=== PATIENT | female | born 1995 | race Caucasian/White ===

== ENCOUNTER 2018-01-13 14:36 | Inpatient (IN) | payer OTHER ==
[2018-01-13 16:33] VITALS: BMI 49.4
[2018-01-13 16:38] LABS: Absolute Monocytes 0.9 K/uL (0.1-1.3); Absolute Neutrophil 6.8 K/uL (1.8-8.0); Basophils % 0.7 % (0-1.3); Eosinophils % 5.6 % (0-4.4); Hematocrit 37.2 % (36.0-45.0); Lymphocytes % 19.3 % (15.3-44.8); MCH 27.3 pg (27.0-35.0); MCV 83.8 fL (80-100); MPV 10.4 fL (7.6-11.3); RBC Red Blood Cell Count 4.44 M/uL (3.86-4.86)
[2018-01-13] MEDS: AMPICILLIN/SULBACT 3 GM in NA CHLORIDE 0.9% 100 ML IVPB SCH (17:24)
[2018-01-13] MEDS: METRONIDAZOLE 500mg IVPB 500 MG/100 ML BAG IV SCH (17:24)
[2018-01-13] MEDS ORDERED: Morphine 2 MG/2 ML SYR IV PRN (22:52)
[2018-01-13] MEDS ORDERED: ACETAMINOPHEN 325 MG TABLET PO PRN (22:53)
[2018-01-13 23:05] LABS: Urine Appearance CLEAR; Urine Bilirubin NEGATIVE (NEG); Urine Blood NEGATIVE (NEG); Urine Color YELLOW; Urine Glucose NEGATIVE (NEG); Urine Protein 1+ (NEG); Urine Specific Gravity >=1.030 (1.005-1.030)
[2018-01-13 23:15] LABS: Urine Microscopic Reflex ORDER UMIC
[2018-01-13 23:37] LABS: Urine Bacteria <20 /HPF (<20); Urine Culture Reflex Order NOT NEEDED; Urine RBC NONE SEEN /HPF (NONE SEEN)
[2018-01-14] MEDS: AMPICILLIN/SULBACT 3 GM in NA CHLORIDE 0.9% 100 ML IVPB SCH ×4 (01:14→19:39)
[2018-01-14] MEDS: METRONIDAZOLE 500mg IVPB 500 MG/100 ML BAG IV SCH ×3 (01:50→17:35)
[2018-01-14] MEDS ORDERED: LIDOCAINE 1% W/EPI 1:100,000 MDV 50 ML VIAL ONE (07:35)
[2018-01-14] MEDS ORDERED: MIDAZOLAM HCL 2 MG/2 ML INJ ONE ×2 (07:44→07:59)
[2018-01-14] MEDS ORDERED: Ringers Lactate 1,000 ML IV ONE (07:52)
[2018-01-14] MEDS ORDERED: PROPOFOL 200 MG/20 ML VIAL IV ONE (07:59)
[2018-01-14] MEDS ORDERED: LIDOCAINE 1% MPF 5 ML VIAL ONE (08:00)
[2018-01-14] MEDS ORDERED: FENTANYL CITR 100 MCG/2 ML ONE (08:00)
[2018-01-14 08:04] LABS: Specific Gravity 1.015 (1.005-1.030)
[2018-01-14] MEDS ORDERED: KETOROLAC 30 MG/ML INJ ONE (08:30)
[2018-01-14] MEDS ORDERED: ONDANSETRON 4 MG/2 ML VIAL ONE (08:30)
[2018-01-14] MEDS ORDERED: HYDROCODONE/APAP 5/325 MG TAB PO PRN (09:31)
[2018-01-14 09:39] VITALS: O2SAT 99
[2018-01-14] MEDS: HYDROCODONE/APAP 5/325 MG TAB PO PRN ×2 (12:51→17:35)
[2018-01-14] MEDS: IBUPROFEN 200 MG TAB PO PRN (16:20)
--- NOTE | 2018-01-14 20:12 | OP ---
Date of Procedure: 01/14/2018 Surgeon: Cecily Ambriz MD Preoperative Diagnosis: Left mons or vulvar abscess with cellulitis. Postoperative Diagnosis: Left mons or vulvar abscess with cellulitis, probably necrotic sebaceous cy st. Anesthesia: General with LMA. Procedure Performed: Wound debridement, excision of the cyst wall. Estimated Blood Loss: Minimal. Specimens: Debrided cyst wall and necrotic tissue, aerobic and anaerobic cultures taken. Complications: None. Drains/packing: Left wet to dry. Indications: The patient is a 22-year-old with complaints of left vulvar/mons abscess that drained a nd is nonhealing. So, she was examined, admitted to the hospital for IV antibiotics, then brought in to the OR for excision and wound debridement. Description Of Procedure: After informed consent was verified, she was taken back to the OR, placed in a supine fashion on the operating table general anesthesia was given, she was placed in a dorsal l ithotomy position using Elan stirrups. Vaginal, vulvar and lower abdominal prep was done in the usu al fashion. Urethra was prepped as well. A red rubber catheter was used to catheterize her. Then, the case was started. An elliptical incision was made all around the wound with a 15-blade after inj ecting 1% lidocaine with 1:100,000 epinephrine 10 cc all around. The cyst wall was completely excise d all the way to the point that good normal fatty tissue was seen and all this was done all around. All this was excised in a systematic fashion, debriding the wound edges using pickups and Allis clamp s. Once the wound edges were completely cleared up, after the cyst wall was excised, and on the late ral margins and the deep margin, there was about a 4 cm depth wound that was about 4 cm around. Thor ough irrigation was suctioned with normal saline. Then, Kerlix sponge was packed in there in a wet-t o-dry fashion. A bandage was placed. The patient was recovered from anesthesia and taken to PACU in stable condition. Estimated Blood Loss: Minimal. Plan: She will be kept in the hospital for 24 hours, change house attendant to p.o. antibiotics, Augmentin and packing and wound care to be taught. To follow up with me in 1 week. ELLA/SHEKHAR Voice ID: [id number] Report ID: [id number]
[2018-01-15] MEDS: AMPICILLIN/SULBACT 3 GM in NA CHLORIDE 0.9% 100 ML IVPB SCH ×2 (00:04→06:21)
[2018-01-15] MEDS: METRONIDAZOLE 500mg IVPB 500 MG/100 ML BAG IV SCH (00:04)
[2018-01-15] MEDS: HYDROCODONE/APAP 5/325 MG TAB PO PRN (08:13)
[2018-01-15] MEDS ORDERED: AMOX/K CLAV 875 MG TAB PO SCH (09:00)
[2018-01-15] MEDS: IBUPROFEN 200 MG TAB PO PRN (09:53)
[2018-01-15 16:52] VITALS: BP 154/92; TEMP 96.8
--- NOTE | 2018-01-16 16:55 | DS ---
Date of Discharge: 01/15/2018 Admitting Diagnoses: Vulvar wound, nonhealing cellulitis, morbid obesity, hidradenitis. Discharge Diagnoses: Vulvar wound, nonhealing cellulitis, morbid obesity, hidradenitis. Hospital Course: Patient was admitted. Please see the H and P for a wound that had cellulitis. Juan pite spontaneous drainage, was not healing, so she was given IV antibiotics, Unasyn and Flagyl. Then , she was taken to the OR the next morning and wound debridement and excision of the sebaceous cyst a nd its entire wall was done and wound was packed wet-to-dry and she was sent to the floor for pain ma nagement and dressing changes. Next morning, which is today, dressing was changed wet-to-dry. Carlobasim haile was coached; however, patient was in a lot of pain, so kept her until the evening and premedicated her with Ottosen 2 tablets and then dressing change done. Partner present now and he was coached, brandie ared to be very nervous, however willing to do the dressing changes. So wet-to-dry dressing changes were clearly discussed with the patient and I did that with the patient and the partner as well as lauren stallworth nurse did it with her mom and the above 2 as well. So, since she tolerated the dressing change halina y well and the dressing changes are arranged through the family. We are discharging her home this ev ening with Tylenol No. 3 and to premedicate before of the constipation and then supplies w ere wet-to-dry dressing changes and then Augmentin 875 b.i.d. for 13 days to finish a full 14-day cou rse of antibiotics. Prescriptions written, all the instructions given. She has a postop appointment in the office already. She will follow up with me if any problems. The patient is instructed to call me if fever greater than 101, increasing drainage, increasing redness o r any difficulty with dressing changes. ELLA/SHEKHAR Voice ID: [id number] Report ID: [id number]
== END 2018-01-15 19:57 | disposition home or self-care (01) | DRG 746 ==
LOC: 2ND 14:44
PROVIDERS: ADMIT Obstetrics & Gynecology; ATTEND Obstetrics & Gynecology
PROC: 0JBB0ZZ Excision of Perineum Subcutaneous Tissue and Fascia, Open Approach (ICD-10-PCS; 2018-01-14)
PROC: 0UBM0ZZ Excision of Vulva, Open Approach (ICD-10-PCS; principal; 2018-01-14 07:30)
DX: N76.4 Abscess of vulva (principal); Z68.42 Body mass index [BMI] 45.0-49.9, adult; E66.01 Morbid (severe) obesity due to excess calories; L73.2 Hidradenitis suppurativa; N76.2 Acute vulvitis
CPT/HCPCS: 36415; 81003; 81015; 81025; 85025; 87070; 87075; 87077; 87186; 87205; 88304; J0295; J2250; J2405; J3010